=== PATIENT | male | born 1960 | race Caucasian/White ===

== ENCOUNTER 2024-03-22 08:13 | Emergency (ER) | payer OTHER, SELFPAY ==
[2024-03-22 08:30] VITALS: BP 135/89
--- NOTE | 2024-03-22 09:45 | ED.GENMED ---
History of Present Illness
General
Chief Complaint: Musculo-Skeletal Complaint
Source: patient and spouse
Exam Limitations: none
Time Seen by Provider: 03/22/24 08:52
Nursing documentation reviewed up to this point in time: agreed with
History of Present Illness
History of Present Illness:
63-year-old male presenting to the emergency department after slipping on ice hitting his right shoulder. This discomfort with movement otherwise denies any head injury neck not on blood thinners. No chest pain shortness of breath no thoracic
discomfort no abdominal pain.
Past History
Past History
ED Past Medical History: NIDDM and Other ( Barretts); Negative CAD, Cancer, CHF or CVA
ED Past Surgical History: Other (Hernia)
Social History
Tobacco: Non-smoker
Alcohol: None
Drug: None
Personal:
Living: with family
Employment: Employed
Family History
Family History: Other (Noncontributory)
Review of Systems
Review of Systems
Allergies reviewed?: Yes
All Other Systems: ROS reviewed and negative except as documented in HPI and ROS
Phy Exam
Physical Exam
Physical Exam:
GENERAL: Alert , in no apparent distress
EYE: pupils equal and reactive
NECK: Supple, no significant adenopathy.
ENT: o/p clr, mmm.
CARDIAC: Regular rate and rhythm .
LUNGS: Clear breath sounds bilaterally, no acute respiratory distress, no wheezes/rales/rhonchi
ABDOMEN: Soft, without focal tenderness, no r/g, no cvat
NEUROLOGICAL: Alert and oriented, no focal neuro deficits
SKIN: Warm and dry, skin intact.
MUSCULOSKELETAL: Some discomfort to the right lateral shoulder but no evidence of deformity no redness or warmth. Increased discomfort with abduction overhead movement and movement behind the back. o edema, well perfused.
PSYCH: Normal and appropriate interaction.
Course
Orders/Labs/Results
Orders:
Orders
03/22/24 08:32
Shoulder, Right, Trauma [CR Shoulder, Trauma - Right] Urgent
Comment:
Reason For Exam: right shoulder pain fell on black ice
03/22/24 09:02
Sling Right-Treatment ONCE
Vital Signs
Initial and Last Documented VS:
Initial Vital Signs
Temp Pulse Resp BP Pulse Ox
98.0 F 77 16 135/89 98
03/22/24 08:30 03/22/24 08:30 03/22/24 08:30 03/22/24 08:30 03/22/24 08:30
Last Documented Vital Signs
Temp Pulse Resp BP Pulse Ox
98.0 F 77 16 135/89 98
03/22/24 08:30 03/22/24 08:30 03/22/24 08:30 03/22/24 08:30 03/22/24 08:30
MDM/Problems Addressed
MDM/Problems Addressed:
63-year-old male presenting to the emergency department today after a slip on ice hitting the right shoulder directly no additional trauma no head trauma no neck pain not on blood thinners. X-ray without emergent findings. No bony abnormalities.
Symptoms consistent with potential rotator cuff injury advised for outpatient follow-up with Ortho otherwise stable for outpatient management return precautions given.
*Critical Care Note
Total Time (30-74mins, 75-104mins- exclusive of procedures): Not Applicable
ED Attending Note
-
Portions of this chart may have been created with voice recognition software.� Occasional wrong word or��sound alike� substitutions may have occurred due to the inherent limitations of voice recognition software.
Discharge Plan
Departure
Patient Disposition: Home (Routine Discharge)
Date of Disposition: 03/22/24
Time of Disposition: 09:46
Patient with high blood pressure during this ER visit?: No
Condition: Good
Covid-19: Not Applicable
Discharge Problem:
Shoulder sprain
Instructions: Sprain (DC)
Prescriptions:
No Action
prednisone 10 MG tablet
10 mg PO DAILY Qty: 20 0RF
Rx Instructions:
4 tabs daily x 2 days,then 3 tabs daily x 2 days, then 2 tabs daily x 2 days, then one tab daily x 2 days
doxycycline monohydrate 100 mg tablet
100 mg PO BID Qty: 14 0RF
albuterol sulfate [ProAir HFA] 90 mcg/actuation HFA aerosol inhaler
1 puff inhalation Q4HPRN PRN (Reason: shortness of breath) Qty: 8.5 0RF
Referrals:
Chidi Cheney MD [Active] - Follow up in 5-7 days
Krystyna Avitia MD [Family Provider] -
Activity Restrictions/Additional Instructions:
You came to the emergency department today after a fall hitting her right shoulder. No evidence of fracture on the x-ray. Please rest over the next few days and follow-up closely with orthopedics for any ongoing symptoms. Return for any
worsening, new or concerning symptoms.
Interventions
Interventions:
*Risk Screen - Suicide Last Done: 03/22/24 08:30
*Neglect/Abuse Screening Last Done: 03/22/24 08:30
ED- Fall Risk Assessment Last Done: 03/22/24 08:53
ED-Musculoskeletal Assessment Last Done: 03/22/24 08:53
Discharge Date and Time
Print Language: UKRAINIAN
== END 2024-03-22 09:55 | disposition home or self-care (01) ==
LOC: EMR 08:13
PROVIDERS: EMERGENCY PHYSICIAN Emergency Medicine; FAMILY PHYSICIAN Internal Medicine
DX: S43.401A Unspecified sprain of right shoulder joint, initial encounter (principal); W00.0XXA Fall on same level due to ice and snow, initial encounter; E11.9 Type 2 diabetes mellitus without complications; K22.70 Barrett's esophagus without dysplasia; K21.9 Gastro-esophageal reflux disease without esophagitis; E78.5 Hyperlipidemia, unspecified; Z91.048 Other nonmedicinal substance allergy status
CPT/HCPCS: 99283; 73030

== ENCOUNTER → 2024-05-13 15:38 | Outpatient (REF) | payer OTHER, SELFPAY | LOC: RCS 15:38 | PROVIDERS: ATTENDING PHYSICIAN Specialist; FAMILY PHYSICIAN Internal Medicine | DX: Z01.818 Encounter for other preprocedural examination (principal) | CPT/HCPCS: 93005 ==